=== PATIENT | female | born 1965 | race Caucasian/White ===

== ENCOUNTER 2018-04-09 04:52 | Inpatient (IN) | payer OTHER ==
[2018-03-30 12:09] VITALS: BMI 32.2
--- NOTE | 2018-04-09 07:32 | HP ---
Admitting History and Physical - Admission Chief Complaint: Pelvic prolapse History of Present Illness: 52 yo Para 3 with one previous , is pre op for abdominal hysterectomy due to pelvic prolapse. History Source: Patient Limitations to Obtaining History: No Limitations - Past Medical History ...LMP Comment: 3 yrs ago ...Para: 3 - Past Surgical History Past Surgical History: Yes: - Smoking History Smoking history: Never smoked - Alcohol/Substance Use Hx Alcohol Use: Yes (rarely) - Social History Usual Living Arrangement: Yes: Alone History of Recent Travel: No Home Medications - Allergies Allergies/Adverse Reactions: Allergies Allergy/AdvReac Type Severity Reaction Status Date / Time No Known Allergies Allergy Verified 04/09/18 06:58 - Home Medications Home Medications: Ambulatory Orders Omeprazole 20 mg PO DAILY 03/30/18 Family Disease History - Family Disease History Family History: Unremarkable Review of Systems - Review of Systems Constitutional: reports: No Symptoms Eyes: reports: No Symptoms HENT: reports: No Symptoms Neck: reports: No Symptoms Cardiovascular: reports: No Symptoms Respiratory: reports: No Symptoms Gastrointestinal: reports: No Symptoms Genitourinary: denies: Menses, Vaginal Bleeding Breasts: reports: No Symptoms Reported Musculoskeletal: reports: No Symptoms Integumentary: reports: No Symptoms Neurological: reports: No Symptoms Endocrine: reports: No Symptoms Hematology/Lymphatic: reports: No Symptoms Psychiatric: reports: No Symptoms Pain Intensity: 0 Physical Examination Vital Signs: Vital Signs Temperature 98.6 F 04/09/18 06:55 Pulse Rate 68 04/09/18 06:55 Respiratory Rate 20 04/09/18 06:55 Blood Pressure 130/72 04/09/18 06:55 O2 Sat by Pulse Oximetry (%) 100 04/09/18 06:49 Constitutional: Yes: Well Nourished Eyes: Yes: Conjunctiva Clear HENT: Yes: Atraumatic Neck: Yes: Supple Cardiovascular: Yes: Regular Rate and Rhythm Gastrointestinal: Yes: Normal Bowel Sounds ...Rectal Exam: Yes: WNL Musculoskeletal: Yes: WNL Extremities: Yes: WNL Neurological: Yes: Alert, Oriented ...Motor Strength: WNL Psychiatric: Yes: Alert, Oriented Problem List - Problems (1) Pelvic prolapse Code(s): N81.9 - FEMALE GENITAL PROLAPSE, UNSPECIFIED Qualifiers: Prolapse type: incomplete uterovaginal prolapse Qualified Code(s): N81.2 - Incomplete uterovaginal prolapse Assessment/Plan Pelvic prolapse Pre op for NASRIN Consent signed Anesthesia to see patient
[2018-04-09] MEDS ORDERED: PROPOFOL 20 ML ONE (07:59)
[2018-04-09] MEDS ORDERED: ROCURONIUM BROMIDE 50 MG/5 ML VIAL ONE (07:59)
[2018-04-09] MEDS ORDERED: LIDOCAINE HCL/PF 2% SDV 5ML VIAL ONE (07:59)
[2018-04-09] MEDS ORDERED: MIDAZOLAM HCL 2 MG/2 ML SINGLE DOSE VIAL ONE ×2 (07:59)
[2018-04-09] MEDS ORDERED: ceFAZolin SODIUM 1 GM VIAL ONE (08:32)
[2018-04-09] MEDS ORDERED: ceFAZolin SODIUM 1 GM VIAL IVPB ONE (08:33)
[2018-04-09] MEDS ORDERED: GLYCOPYRROLATE 0.2 MG/1 ML VIAL ONE (09:03)
[2018-04-09] MEDS ORDERED: DEXAMETHASONE SOD PHOSPHATE 4 MG/1 ML VIAL ONE (09:03)
[2018-04-09] MEDS ORDERED: NEOSTIGMINE METHYLSULFATE 0.5 MG/ML - 10 ML MDV ONE (09:04)
[2018-04-09] MEDS ORDERED: PROCHLORPERAZINE INJECTION 10 MG/2 ML VIAL IVPB PRN (09:46)
[2018-04-09] MEDS ORDERED: diphenhydrAMINE HCL 25 MG CAPSULE (FP) PO PRN (09:46)
[2018-04-09] MEDS ORDERED: METOCLOPRAMIDE HCL INJECTION 10 MG/2 ML VIAL IVPUSH PRN (09:46)
[2018-04-09] MEDS ORDERED: ONDANSETRON 4 MG/2 ML VIAL IVPB PRN (09:46)
--- NOTE | 2018-04-09 09:50 | OP ---
Operative Note - Note: Operative Date: 04/09/18 Pre-Operative Diagnosis: Pelvic prolapse Operation: Abdominal hysterectomy / Salpingectomy / Vault suspension Findings: Normal pelvis Post-Operative Diagnosis: Same as Pre-op Surgeon: Mary Ellen Hannon Grease Press Helper: Brenda Skinner Anesthesia: General Specimens Removed: Uterus / Cervix / Tubes Estimated Blood Loss (mls): 100
[2018-04-09] MEDS ORDERED: IBUPROFEN 800 MG/8 ML IJ IVPB PRN (10:01)
[2018-04-09] MEDS ORDERED: LACTATED RINGERS SOLUTION 1,000 ML IV SCH (10:15)
[2018-04-09] MEDS ORDERED: LORazepam 2 MG/ML SDV VIAL IVPUSH PRN (10:42)
[2018-04-09] MEDS ORDERED: LORazepam 0.5 MG TABLET PO PRN (10:43)
[2018-04-09] MEDS: DEXTROSE 5%-LACTATED RINGERS 1,000 ML IV SCH (12:25)
[2018-04-09] MEDS: ACETAMINOPHEN 325 MG TABLET (FP) PO PRN ×2 (17:10→21:15)
[2018-04-09] MEDS: oxyCODONE HCL 5 MG TABLET PO PRN ×2 (17:11→21:14)
[2018-04-10] MEDS: oxyCODONE HCL 5 MG TABLET PO PRN ×3 (00:52→16:03)
[2018-04-10] MEDS: ACETAMINOPHEN 325 MG TABLET (FP) PO PRN ×3 (00:54→16:02)
[2018-04-10 08:13] LABS: HEMATOCRIT 34.8 % (32.4-45.2); HEMOGLOBIN 11.3 GM/dL (10.7-15.3); MCH 28.8 pg (25.7-33.7); MCHC 32.4 g/dl (32.0-36.0); MEAN CELL VOLUME 88.8 fl (80-96); MEAN PLT VOLUME 9.6 fl (7.5-11.1); PLATELET COUNT 255 K/MM3 (134-434); RBC 3.92 M/mm3 (3.60-5.2); RDW 13.1 % (11.6-15.6); WHITE BLOOD COUNT 8.9 K/mm3 (4.0-10.0)
[2018-04-10 08:46] LABS: ANION GAP 5 MMOL/L (8-16); BLOOD UREA NITROGEN 7 mg/dL (7-18); CALCIUM 8.8 mg/dL (8.5-10.1); CHLORIDE 104 mmol/L (98-107); CO2 29 mmol/L (21-32); CREATININE 0.7 mg/dL (0.55-1.3); GLUCOSE,RANDOM 93 mg/dL (74-106); POTASSIUM 3.8 mmol/L (3.5-5.1); SODIUM 138 mmol/L (136-145)
[2018-04-10] MEDS: DEXTROSE 5%-LACTATED RINGERS 1,000 ML IV SCH (09:15)
--- NOTE | 2018-04-10 11:46 | PN ---
Progress Note (short form) - Note Progress Note: 52 yo status post hysterectomy, seen and evaluated. She's lying comfortably in bed; c/o incision pain. PE : Chest : CTA, no rales ABD : Soft, no distention Dressing removed, steri strips in place, no bleeding EXT : No calf tenderness A / P : Status post NASRIN / Salpingectomy / Vault suspension Ambulation D/C Morrow catheter Analgesia as needed Continue post op care Problem List - Problems (1) Pelvic prolapse Code(s): N81.9 - FEMALE GENITAL PROLAPSE, UNSPECIFIED Qualifiers: Prolapse type: incomplete uterovaginal prolapse Qualified Code(s): N81.2 - Incomplete uterovaginal prolapse
--- NOTE | 2018-04-10 11:52 | DS ---
Physical Exam-[facility] Vital Signs: Vital Signs Temperature 97.8 F 04/10/18 09:00 Pulse Rate 76 04/10/18 09:00 Respiratory Rate 18 04/10/18 09:00 Blood Pressure 102/63 04/10/18 09:00 O2 Sat by Pulse Oximetry (%) 100 04/09/18 21:00 Constitutional: Yes: Well Nourished Eyes: Yes: Conjunctiva Clear HENT: Yes: Atraumatic Neck: Yes: Supple Cardiovascular: Yes: Regular Rate and Rhythm Respiratory: Yes: Regular Gastrointestinal: Yes: Tenderness ...Rectal Exam: Yes: WNL External Genitalia: Yes: Normal Vaginal Exam: Yes: Normal Wound/Incision: Yes: Well Approximated, Steri Strips (in place) Neurological: Yes: Alert, Oriented ...Motor Strength: WNL Psychiatric: Yes: Alert, Oriented Labs: CBC, BMP 04/10/18 07:15 04/10/18 06:00 Discharge Summary Reason For Visit: PELVIC PROLAPSE Current Active Problems Pelvic prolapse (Acute) Status post abdominal hysterectomy (Acute) Procedures: Principal: Abdominal hysterectomy / Salpingectomy / Vault suspension Condition: Good - Instructions Diet, Activity, Other Instructions: Regular diet No driving, no lifting x 3 weeks F/U with MD in 2 weeks Disposition: HOME - Home Medications Comprehensive Discharge Medication List: Ambulatory Orders Omeprazole 20 mg PO DAILY 03/30/18 Oxycodone HCl/Acetaminophen [Percocet 5-325 mg Tablet] 1 tab PO Q4H #20 tablet MDD 4 04/10/18
--- NOTE | 2018-04-10 13:09 | PN ---
Progress Note (short form) - Note Progress Note: Anesthesia postop note 52 y/o F s/p GA for abdominal hysterectomy, tap blocks POD#1, vss, aaox3, some abdominal pain, just medicated. No anesthesia complications.
[2018-04-11] MEDS: oxyCODONE HCL 5 MG TABLET PO PRN ×2 (00:33→04:55)
[2018-04-11] MEDS: ACETAMINOPHEN 325 MG TABLET (FP) PO PRN ×2 (00:36→04:56)
[2018-04-11] MEDS ORDERED: SIMETHICONE 80 MG TAB.CHEW (FP) PO PRN (05:23)
[2018-04-11 09:12] VITALS: BP 107/70; PULSE 69; TEMP 98.7
--- NOTE | 2018-04-11 17:30 | PATH ---
Surgical Pathology Report Patient Name: FRANNY GOODMAN [facility]. Rec. #: [id number] /Age/Gender: 1965 (Age: 52) / F Account: [id number] Location: [facility] OBS/DISABILITY SERVICES COORDINATOR Taken: 04/09/2018 Received: 04/09/2018 Reported: 04/11/2018 Physicians: Mary Ellen Hannon M.D. Specimen(s) Received A: PORTION OF THE RIGHT FALLOPIAN TUBE B: PORTION OF THE LEFT FALLOPIAN TUBE C: UTERUS AND CERVIX Clinical History Pelvic prolapse Final Diagnosis A. FALLOPIAN TUBE, RIGHT, SALPINGECTOMY: UNREMARKABLE FALLOPIAN TUBE (INCLUDING FIMBRIATED END AND FULL LUMINAL PORTION. B. FALLOPIAN TUBE, LEFT, SALPINGECTOMY: UNREMARKABLE FALLOPIAN TUBE (INCLUDING FIMBRIATED END AND FULL LUMINAL PORTION. C. CERVIX AND UTERUS, TOTAL ABDOMINAL HYSTERECTOMY: INACTIVE ENDOMETRIUM AND ENDOMETRIAL POLYP. UNREMARKABLE MYOMETRIUM. CERVIX WITH FOCAL PARAKERATOSIS AND MILD CHRONIC CERVICITIS. Electronically Signed Janett Mena M.D. Gross Description A. Received in formalin labeled "portion of right tube," is a 2.1 cm in length fimbriated fallopian tube. The outer is potter-mensah and smooth. Sectioning reveals an unremarkable lumen. Signal Fitter sections are submitted in 2 cassettes as follows: 1-fimbria; 2-cross sections of fallopian tube. B. Received in formalin labeled "portion of the left tube," is a 2.5 cm in length fimbriated fallopian tube. The outer surface is potter-mensah and smooth. Sectioning reveals an unremarkable lumen. Signal Fitter sections are submitted in 2 cassettes as follows: 1-fimbria; 2-cross sections of fallopian tube. C. Received in formalin labeled "cervix and uterus," is a 52 g uterus with an attached cervix and no attached adnexa. The specimen measures 6.5 cm from superior to inferior, 4.3 cm from left to right and 2.6 from anterior to posterior. The serosa is potter-mensah and smooth. The attached cervix measures 2.7 cm in length and averages 2.5 cm in diameter. The ectocervix is pink-potter, smooth and glistening. The endocervix is unremarkable. The endometrial cavity measures 3 cm in length and 1.6 cm from cornu to cornu. The endometrium is potter with a 0.6 cm in greatest dimension possible polypoid lesion on the posterior aspect. The remaining endometrium averages 0.1 cm. The myometrium is potter and averages 1.2 cm in thickness. No intramural nodules are identified. Signal Fitter sections are submitted in 6 cassettes as follows: 1-anterior cervix; 2-posterior cervix; 8-1-vsboyryo endomyometrium; 2-2-dmovcjfnv endomyometrium with possible polyp. 04/10/2018 saudi04/10/2018
== END 2018-04-11 12:45 | disposition home health service (06) | DRG 513 ==
LOC: JSAMEDAYSX 04:52 → EDSTATUS 08:00 → J3W 12:25
PROVIDERS: ADMIT Obstetrics & Gynecology; ATTEND Obstetrics & Gynecology
PROC: 0UT70ZZ Resection of Bilateral Fallopian Tubes, Open Approach (ICD-10-PCS; 2018-04-09)
PROC: 0UT90ZZ Resection of Uterus, Open Approach (ICD-10-PCS; principal; 2018-04-09 08:00)
DX: N81.2 Incomplete uterovaginal prolapse (principal); N84.0 Polyp of corpus uteri; N72 Inflammatory disease of cervix uteri
CPT/HCPCS: 36415; 80048; 85027; 86850; 86900; 86901; 88305-TC; 94760

== ENCOUNTER 2024-06-29 10:51 | Emergency (ER) | payer OTHER ==
[2024-06-29 10:58] VITALS: BP 115/71; PULSE 81; RESP 16; TEMP 98.2; BMI 29.6
[2024-06-29] MEDS ORDERED: LIDOCAINE 4% PATCH TP ONE (11:44)
[2024-06-29] MEDS ORDERED: KETOROLAC TROMETHAMINE 15 MG/ML VIAL ONE (11:44)
[2024-06-29] MEDS ORDERED: ACETAMINOPHEN 500 MG TABLET (FP) ONE (11:44)
[2024-06-29] MEDS ORDERED: METHOCARBAMOL 500 MG TABLET ONE (11:44)
[2024-06-29] MEDS: KETOROLAC TROMETHAMINE 15 MG/ML VIAL IM ONE (11:51)
[2024-06-29] MEDS: METHOCARBAMOL 500 MG TABLET PO ONE (11:51)
[2024-06-29] MEDS: ACETAMINOPHEN 500 MG TABLET (FP) PO ONE (11:51)
[2024-06-29] MEDS: LIDOCAINE 4% PATCH TP ONE (11:51)
[2024-06-29 12:13] LABS: URINE APPEARANCE CLEAR; URINE BILIRUBIN NEGATIVE (NEGATIVE); URINE COLOR YELLOW; URINE GLUCOSE (UA) NEGATIVE (NEGATIVE); URINE KETONE NEGATIVE (NEGATIVE); URINE LEUK ESTERASE NEGATIVE (NEGATIVE); URINE NITRITE NEGATIVE (NEGATIVE); URINE PROTEIN NEGATIVE (NEGATIVE); URINE UROBILINOGEN 0.2 mg/dL (0.2-1.0)
[2024-06-29 13:44] LABS: HIV INTERPRETATION NEGATIVE (NEGATIVE)
[2024-06-29] MEDS ORDERED: LIDOCAINE PATCH REMOVAL MC SCH (22:00)
== END 2024-06-29 13:53 | disposition home or self-care (01) ==
LOC: JER 10:51 → JERFT 10:51
PROC: 3E0133Z Introduction of Anti-inflammatory into Subcutaneous Tissue, Percutaneous Approach (ICD-10-PCS; principal; 2024-06-29)
DX: M54.16 Radiculopathy, lumbar region (principal); M54.42 Lumbago with sciatica, left side; R20.0 Anesthesia of skin; R10.32 Left lower quadrant pain
CPT/HCPCS: 36415; 72100-TC-FY; 81003; 86803; 87086; 87389; 99284-25